=== PATIENT | male | born 1945 | race Caucasian/White ===

== ENCOUNTER 2019-11-13 07:29 | Outpatient (CLI) | payer MEDICARE, SELFPAY ==
--- NOTE | 2019-11-13 07:49 | ECHO_ITS ---
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 Summary 1. Left ventricular chamber dimension is normal. 2. Ventricular septum is sigmoid shaped. 3. Left ventricular systolic function is normal, estimated at 55-60%. 4. There is mildly increased left ventricular wall thickness. 5. The left ventricular diastolic function is abnormal. 6. E/e' 14 is mildly elevated. 7. Atrial fibrillation. 8. Left atrial chamber dimension is mildly enlarged. 9. There is severe aortic valve sclerosis. 10. There is severe aortic valve stenosis with a peak velocity of 325 cm/s, mean gradient of 14 mmHg, and aortic valve area of 0.6 cm2. 11. By planimetry, valve area is 0.9 cm2. 12. There is mild to moderate mitral valve regurgitation. 13. There is mild tricuspid valve regurgitation. 14. No pulmonary hypertension, estimated pulmonary arterial systolic pressure is 33 mmHg. 15. There is trace pulmonic regurgitation. Left Ventricle E/e' 14 is mildly elevated. Atrial fibrillation. Ventricular septum is sigmoid shaped. Left ventricular chamber dimension is normal. Left ventricular systolic function is normal, estimated at 55-60%. There is mildly increased left ventricular wall thickness. The left ventricular diastolic function is abnormal. Right Ventricle Right ventricular chamber dimension is normal. Right ventricular systolic function is normal. Left Atria Left atrial chamber dimension is mildly enlarged. Right Atria Right atrial chamber dimension is normal. Aortic Valve By planimetry, valve area is 0.9 cm2. The aortic valve is trileaflet. There is severe aortic valve sclerosis. There is severe aortic valve stenosis with a peak velocity of 325 cm/s, mean gradient of 14 mmHg, and aortic valve area of 0.6 cm2. There is no aortic valve regurgitation. Pulmonic Valve There is trace pulmonic regurgitation. Mitral Valve There is no mitral valve stenosis. There is mild to moderate mitral valve regurgitation. Tricuspid Valve There is mild tricuspid valve regurgitation. No pulmonary hypertension, estimated pulmonary arterial systolic pressure is 33 mmHg. Pericardium/Pleural There is no pericardial effusion. Inferior Vena Cava Normal inferior vena cava with >50% collapse upon inspiration consistent with normal right atrial pressure, 5 mmHg. Aorta The aortic root size at the sinus of Valsalva is normal. Left Ventricular Outflow Tract Name Value Normal LVOT 2D LVOT Diameter 1.8 cm LVOT Doppler
== END 2019-11-13 07:30 | disposition home or self-care (01) ==
PROVIDERS: PCP Family Medicine; Visit Provider Physician Assistant
DX: I08.0 Rheumatic disorders of both mitral and aortic valves (principal); I48.91 Unspecified atrial fibrillation
CPT/HCPCS: 93306

== ENCOUNTER 2019-12-09 05:04 | Day surgery (SDC) | payer MEDICARE, OTHER, SELFPAY ==
[2019-12-09] VITALS (11 sets, daily range): BP systolic 109–172; BP diastolic 75–114; PULSE 51–91; RESP 11–24; TEMP 36.6; O2SAT 100
--- NOTE | 2019-12-09 | ECG_ITS ---
Measurements Intervals [place] Rate: 50 P: 53 AL: 191 QRS: -39 QRSD: 105 T: -2 QT: 388 QTc: 354 Interpretive Statements SINUS BRADYCARDIA LEFT AXIS DEVIATION DELAYED PRECORDIAL R/S TRANSITION BORDERLINE T WAVE ABNORMALITY- INFERIOR LEADS BORDERLINE ECG Electronically Signed On 12-09-2019 11:33:16 CDT by Sampson Rosas D.O.
--- NOTE | 2019-12-09 07:00 | ECG_ITS ---
Measurements Intervals [place] Rate: 89 P: MD: 0 QRS: -46 QRSD: 110 T: 28 QT: 336 QTc: 409 Interpretive Statements ATRIAL FIBRILLATION LEFT AXIS DEVIATION INTRAVENTRICULAR CONDUCTION DELAY DELAYED PRECORDIAL R/S TRANSITION BASELINE ARTIFACT- ii, iii, avf ABNORMAL ECG Electronically Signed On 12-09-2019 7:32:18 CDT by Sampson Rosas D.O.
[2019-12-09 07:38] LABS: Hematocrit 47.9 % (42.0-52.0); Hemoglobin 16.4 g/dL (14.0-18.0); Mean Corpuscular HGB Conc 34.2 g/dl (32-36); Mean Corpuscular Hemoglobin 30.1 pg (26-34); Mean Corpuscular Volume 87.9 fl (80-100); Mean Platelet Volume 10.4 fl (7.4-10.4); Platelet Count Result 146 k/mm3 (150-375); Red Blood Count 5.45 M/mm3 (4.6-6.20); Red Cell Distribution Width 12.8 % (11.5-14.5); White Blood Count 7.1 K/mm3 (4.5-10.0)
[2019-12-09 07:48] LABS: Blood Urea Nitrogen 18 mg/dL (9-20); Calcium 8.8 mg/dL (8.4-10.2); Carbon Dioxide 29 mmol/L (22-30); Chloride 105 mmol/L (98-107); Estimated Glomerular Filt Rate 59; Glucose 117 mg/dL (75-110); Potassium 4.1 mmol/L (3.4-5.0); Sodium 136 mmol/L (137-145)
[2019-12-09 08:00] LABS: INR 1.5; Prothrombin Time 18.1 Seconds (11.1-14.7)
--- NOTE | 2019-12-09 08:42 | WPDMODSED ---
Moderate Sedation Note-Pt Data Patient Data Diagnosis: Aortic stenosis, atrial fibrillation Present Complaint: Aortic stenosis, atrial fibrillation Procedure to be performed/Plan: Multiplanar transesophageal echocardiography with color flow and pulse wave Doppler Agitated saline study Electrical cardioversion Moderate sedation Allergies Allergy/AdvReac Type Severity Reaction Status Date / Time quinapril Allergy Unknown ACEI cough Verified 10/24/19 09:17 Home Medications Medication Instructions Recorded Confirmed Type simvastatin 10 mg tablet 10 mg PO DAILY #90 tablet 09/10/19 12/06/19 Rx metoprolol succinate 50 mg 50 mg PO DAILY #90 tablet 12/05/19 12/06/19 Rx tablet,extended release 24 hr rivaroxaban [Xarelto] 20 mg PO DAILY 12/06/19 12/06/19 History famotidine 20 mg PO HS 12/09/19 12/09/19 History latanoprost 1 drp OPHTHALMIC (EYE) QPM 12/09/19 12/09/19 History Current Medications: Active Medications Sodium Chloride (Normal Saline Iv) 1,000 mls @ 30 mls/hr IV CONT .Q24H JARROD Sedation/Anesthesia: No previous sedation/anesthesia problems (including family history). [facility] Past Medical History Medical History Hearing problem Hepatitis C antibody test negative (02/05/19) Surgical History Surgical History History of colonoscopy (07/05/19) normal Family History Family History Mother Family history of malignant neoplasm of stomach Family history of throat cancer Father Family history of malignant neoplasm of urinary bladder Social History Social History Smoking status: Never smoker Alcohol intake: current Mod Sed Physical Exam Physical Exam Pre Procedural Exam: Normal: Appearance, Eyes, Ears, Nose, Neck, Throat, Airway, Lungs, Heart Size, Heart Rate, Neuro Exam, Abdomen, Extremities and Skin and Variation: Heart Rhythm (Irregularly irregular) Hours since solid foods: 12 Hours since liquid intake: 12 Internal Medicine - PN: Obj Da Vital Signs Vital Signs: Vital Signs - 24 hr 12/09/19 07:23 12/09/19 08:30 Temperature 36.6 C Pulse Rate 76 91 Respiratory Rate 14 15 Blood Pressure 152/97 H 152/96 H Pulse Oximetry 100 100 Meds/Results Medications: Active Medications Generic Name Dose Route Start Last Admin Trade Name Casi PRN Reason Stop Dose Admin Sodium Chloride 1,000 mls @ 30 mls/hr 12/09/19 06:00 Normal Saline Iv IV CONT .Q24H JARROD Labs CBC & Chem 7: 12/09/19 07:17 12/09/19 07:17 Labs: Laboratory Results - last 24 hr 12/09/19 12/09/19 12/09/19 07:17 07:17 07:17 WBC 7.1 RBC 5.45 Hgb 16.4 Hct 47.9 MCV 87.9 MCH 30.1 MCHC 34.2 RDW 12.8 Plt Count 146 L MPV 10.4 PT 18.1 H INR 1.5 Sodium 136 L Potassium 4.1 Chloride 105 Carbon Dioxide 29 BUN 18 Creatinine 1.20 Estim Creat Clear Calc Not Reportable Estimated GFR 59 Glucose 117 H Calcium 8.8 Magnesium 2.0 ASA Classification/Sedation ASA Classification/Sedation ASA Class: II Emergent: No Risks: Risks, benefits and alternatives explained and patient/family accepted plan for sedation. Patient re-evaluated immediately prior to sedation.
--- NOTE | 2019-12-09 09:54 | SUR.PHASEII ---
0926 DR WALLS IN SPEAKING W PATIENT AND FAMILY RE FINDINGSOF NING.
--- NOTE | 2019-12-09 10:03 | SUR.PHASEII ---
0905-pt into Phase II Recovery. No distress noted. Goyo. at bedside. Will continue to monitor.
--- NOTE | 2019-12-09 10:21 | WPDTECDV ---
NING with Cardioversion Date of procedure: 12/09/19 Procedure Type: Multiplanar transesophageal echocardiography with color flow and pulse wave Doppler Agitated saline study Electrical cardioversion Moderate sedation Diagnosis: Aortic stenosis, atrial fibrillation Indications: Aortic stenosis, atrial fibrillation Description of Procedure: After discussing the risks benefits alternatives of the procedure the patient agreeable via verbal and written informed consent. Risks discussed included esophageal rupture perforation, need for emergent surgery, bleeding him pain-free, infection, skin irritation or burn from the pads, shocking into a more problematic heart rhythm. After time-out was taken and after establishing continuous telemetry monitoring, pulse oxygenation and serial blood pressure assessments, procedure was initiated. Procedure start time 8:45 a.m. Procedure stop time 9:05 a.m. Patient was monitored and medications were administered by Beata Camara RN Complications: None Blood loss: None Sedation: Moderate sedation using a total of 3 mg of Versed and 75 mcg of fentanyl given in divided dosages. Viscous lidocaine 10 cc gargle and swallow was also used for topical anesthetic. Findings: Normal left ventricular size and function with ejection fraction estimated 60-65%. Normal right ventricular size and function. Normal right atrial size. Mild left atrial enlargement. There is [id number] mitral regurgitation. Left atrial appendage is normal without mass or thrombus with velocities of around 50 centimeters/second. No pericardial effusion. The aortic root is mildly sclerotic. It measures 3.6 cm. The tricuspid valve is normal with mild tricuspid regurgitation. Pulmonic valve is normal with mild pulmonic insufficiency. Atrial septum appears intact. Negative agitated saline study for shunting. Color-flow does not show clear evidence of [id number] shunting. The aortic valve is trileaflet and calcified. Averaged planimetered aortic valve area of 0.9 centimeters squared. Electrical cardioversion: 150 joules of biphasic synchronized energy was used to restore sinus rhythm from atrial fibrillation Conclusion: 1. Normal left ventricular size and function 2. Mild left atrial enlargement 3. Masz-fo-wenbaohn mitral regurgitation 4. Severe aortic stenosis with averaged planimetered aortic valve area of 0.9 centimeter squared with mild aortic insufficiency 5. Mild tricuspid regurgitation 6. Successful zoroastrianism of sinus rhythm using 150 joules of biphasic synchronized energy 7. Moderate sedation I will see him back in the office later on this week. At that point we will initiate workup and referral to the valve Clinic as he will need a left and right heart catheterization.
--- NOTE | 2019-12-09 11:03 | SUR.PHASEII ---
2393 DETAILED WRITTEN AND VERBAL DISCHARGE INSTRUCTIONS REVIEWED W PATIENT AND AT BEDSIDE.BOTH VERBALIZE UNDERSTANDING. IV DC'D. PT TAKEN OUT IN WHEELCHAIR.
== END 2019-12-09 10:28 | disposition home or self-care (01) ==
PROVIDERS: PCP Family Medicine; Visit Provider Internal Medicine Cardiovascular Disease
PROC: (CPT 93312; principal; 2019-12-09 08:30)
PROC: 5A2204Z Restoration of Cardiac Rhythm, Single (ICD-10-PCS; 2019-12-09 08:30)
DX: I35.0 Nonrheumatic aortic (valve) stenosis (principal); I48.91 Unspecified atrial fibrillation; I34.0 Nonrheumatic mitral (valve) insufficiency; I36.1 Nonrheumatic tricuspid (valve) insufficiency; I10 Essential (primary) hypertension; E78.00 Pure hypercholesterolemia, unspecified; G47.33 Obstructive sleep apnea (adult) (pediatric); Z79.01 Long term (current) use of anticoagulants
CPT/HCPCS: 36415; 80048; 83735; 85027; 85610; 92960; 93005; 93312; 93320; 93325; J2250; J3010; J7040

== ENCOUNTER 2020-10-09 07:31 | Outpatient (CLI) | payer MEDICARE, OTHER, SELFPAY ==
--- NOTE | ~2020-10-09 | US_ITS ---
EXAMINATION: US right upper quadrant DATE: 10/09/2020 08:08 INDICATION: Abnormal liver enzymes TECHNIQUE: Multiple grayscale and Doppler ultrasound images of the abdomen were obtained. COMPARISON: None available FINDINGS: Bowel gas obscures visualization of the pancreas. The visualized portions of the pancreas a re unremarkable. The liver is normal with normal echogenicity and echotexture. No surface nodularity. Normal hepatopetal flow in the main portal vein. There is a 5 mm polyp of the gallbladder. No gallbl adder wall thickening, pericholecystic fluid, or stones are identified. The normal common bile duct m easures 2 mm. There was no sonographic Welsh sign. IMPRESSION: 1. No sonographic correlate for the patient's symptoms. 2. 5 mm gallbladder polyp. Surgery is sometimes considered for patients greater than 50 years of age. Reviewed, dictated and finalized at location A. [employer] COUNSEL[employer]
== END 2020-10-09 07:32 | disposition home or self-care (01) ==
PROVIDERS: PCP Family Medicine; Visit Provider Family Medicine
DX: R74.8 Abnormal levels of other serum enzymes (principal); K82.4 Cholesterolosis of gallbladder
CPT/HCPCS: 76705

== ENCOUNTER → 2021-05-17 10:15 | Outpatient (CLI) | payer MEDICARE, SELFPAY ==
--- NOTE | ~2021-05-17 | US_ITS ---
EXAMINATION: US abdomen limited EXAM DATE: 05/17/2021 10:38 INDICATION: K82.4 - Cholesterolosis of gallbladder. TECHNIQUE: Multiple grayscale and Doppler images of the abdomen right upper quadrant were obtained (b y a technologist who performed the scan) and subsequently reviewed. Comparison is made to prior exami nation from 10/09/2020. FINDINGS: The pancreatic head and body are normal in appearance. The pancreatic tail is not visualized. The l iver has normal echogenicity and contour. There are no focal liver lesions identified. There is no evidence of intrahepatic biliary duct dilation. Portal venous flow was seen in the hepatopedal, nor mal direction and has normal Doppler waveform. No right-sided hydronephrosis. Common bile duct measures 4 mm, which is normal. The gallbladder wall is normal in thickness, with ex pected amount of distention. No sonographic evidence of pericholecystic fluid. There is 4 mm gallbl adder polyp unchanged and likely benign. Technologist performing exam reports patient did not demons trate sonographic Welsh's sign. Please note that this sign is less reliable in patients who have re ceived pain medication. IMPRESSION: 1. Small gallbladder polyp unchanged. Reviewed, dictated and finalized at location A.
== END ==
PROVIDERS: PCP Family Medicine; Visit Provider Surgery
DX: K82.4 Cholesterolosis of gallbladder (principal)
CPT/HCPCS: 76705

== ENCOUNTER 2022-04-05 09:41 | Outpatient (CLI) | payer MEDICARE, OTHER, SELFPAY ==
--- NOTE | ~2022-04-05 | US_ITS ---
EXAMINATION: US right upper quadrant DATE: 04/05/2022 10:06 INDICATION: Diarrhea, unspecified TECHNIQUE: Multiple grayscale and Doppler ultrasound images of the abdomen were obtained. COMPARISON: 05/17/2021, FINDINGS: Bowel gas obscures visualization of the pancreas The liver is normal with normal echogenici ty and echotexture. No surface nodularity. Normal hepatopetal flow in the main portal vein. There is a stable 4 mm polyp of the gallbladder. There is no gallbladder wall thickening or pericholecystic fl uid. The normal common bile duct measures 4 mm. There was no sonographic Welsh sign. IMPRESSION: 1. Benign gallbladder polyp, stable. No sonographic correlate for diarrhea. Reviewed, dictated and finalized at location A.
== END 2022-04-05 09:42 | disposition home or self-care (01) ==
PROVIDERS: PCP Family Medicine; Visit Provider Family Medicine
DX: R19.7 Diarrhea, unspecified (principal); R17 Unspecified jaundice
CPT/HCPCS: 76705

== ENCOUNTER 2022-06-09 00:58 | Day surgery (SDC) | payer MEDICARE, OTHER, SELFPAY ==
[2022-04-29 13:25] VITALS: BMI 26.7
--- NOTE | 2022-05-25 15:31 | PC.NURSE ---
Prior interview completed 04/29/22. Pt updated on new date/time of procedure.
--- NOTE | 2022-06-02 10:55 | PC.NURSE ---
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
--- NOTE | 2022-06-08 10:16 | WPDANESEPPF ---
Anes - Initial Pre Proc Eval Procedure: Operation Date: 06/09/22 07:30 Proposed Procedures p Esophagogastroduodenoscopy - Zuhair Guzman MD Date/Time: 06/08/22 10:16 Surgeon: Zuhair Guzman MD Pre Op Diagnosis: jaundice, diarrhea Patient Data Age: 76 Gender: M Height: 1.78 m Weight: 84.5 kg Allergies Allergy/AdvReac Type Severity Reaction Status Date / Time quinapril Allergy Unknown ACEI cough Verified 06/09/22 06:20 Home Medications Medication Instructions Recorded Confirmed Type rivaroxaban 20 mg tablet (Xarelto) 20 mg PO DAILY 12/06/19 06/09/22 History latanoprost 0.005 % eye drops 1 drp ophthalmic (eye) QPM 12/09/19 06/09/22 History amlodipine 2.5 mg tablet 2.5 mg PO DAILY 02/28/20 06/09/22 History atorvastatin 40 mg tablet 40 mg PO DAILY 06/29/20 06/09/22 History aspirin 81 mg tablet,delayed 81 mg PO DAILY 11/11/20 06/09/22 History release metoprolol succinate 50 mg 50 mg PO DAILY #90 tabs 11/04/21 06/09/22 Rx tablet,extended release 24 hr finasteride 5 mg tablet 5 mg PO DAILY 03/18/22 06/09/22 History melatonin 5 mg tablet 5 mg PO QHS #1 tablet 03/25/22 06/09/22 Rx Saccharomyces boulardii 50 mg 50 mg PO DAILY 04/29/22 06/09/22 History capsule guar gum 1 gram tablet 1 g PO DAILY 04/29/22 06/09/22 History famotidine 20 mg tablet (Pepcid AC) 20 mg PO BID #60 tabs 06/09/22 Rx Patient hx anesthesia problems: none Family hx anesthesia problems: none Results Review: All pre-operative results and documents have been reviewed as part of the pre-operative evaluation. [facility] Past Medical History Medical History (Updated 06/09/22 @ 07:48 by Zuhair Guzman MD) Essential (primary) hypertension Glaucoma Hearing problem Hepatitis C antibody test negative (02/05/19) Hyperlipidemia Obstructive sleep apnea Stage 3 chronic kidney disease Surgical History Surgical History (Updated 06/08/22 @ 10:17 by Andi Johnson DO) Aortic valve replaced (~2019) H/O heart bypass surgery History of aortic valve replacement with bioprosthetic valve History of colonoscopy (07/05/19) normal Family History Family History Mother Family history of malignant neoplasm of stomach Family history of throat cancer Father Family history of malignant neoplasm of urinary bladder Social History Social History Smoking status: Never smoker Alcohol intake: former Drinks per week: 10 Substance use: never Substance use type: does not use Living arrangements: with family Gender identity (if verbalized by the patient): Male Sexual Orientation (if Verbalized by the Patient): Straight or Heterosexual Spiritual care concerns: No Anes - Eval Final PreProcedure Day of Procedure 06/08/22 10:16 Patient weight: overweight Heart: regular rate and rhythm Lungs: clear to auscultation Airway: Mallampati scale class II Neurological: alert and oriented Last oral intake: >/= 8 hours ASA classification: III Emergent: no Anesthetic plan: proceed Anesthesia type and monitoring: general GIVS and standard monitoring Results Review: All pre-operative results and documents have been reviewed as part of the pre-operative evaluation. Informed Consent: The patient's anesthetic plan and its attendant risks and benefits were discussed with the patient/family/POA. Questions were solicited and answers provided to the satisfaction of the patient/family/POA.
[2022-06-09 06:23] VITALS: BP 144/86; PULSE 77; RESP 18; TEMP 36.7; O2SAT 100
[2022-06-09] MEDS: LACTATED RINGERS 1,000 ML 150 ML IV CONT (06:25)
[2022-06-09] MEDS: GENTAMICIN 80MG/SOD CHL 50 ML 80 MG/50 ML BAG 100 MG IVPB (06:32)
[2022-06-09] MEDS: AMPICILLIN 2 GM/NS 100 ML 2 GM/100 ML BAG IVPB (06:55)
--- NOTE | 2022-06-09 07:31 | SUR.PREOP ---
Dr Guzman made aware that pt's last does of [place] was 06/07/2022.
[2022-06-09] MEDS: SIMETHICONE ORAL SUSPENSION 20 MG/0.3 ML 30 ML BOTTLE 0.6 ML IRRIGATION (07:41)
--- NOTE | 2022-06-09 07:44 | PM.IMHP ---
H&P: HPI History of Present Illness Date/Time: 06/09/22 07:44 Chief Complaint: Dyspepsia Narrative: this is a 76-year-old white male patient I am asked to see for dyspepsia. Patient complains of nocturnal heartburn. Previously took Pepcid but now only takes Tums at night. States this seems to given most relief but he does take this on a regular basis. An EGD is requested. 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 Surgery is seen patient and observation advised. Hepatitis-C is negative. Other liver tests are negative. patient also has a history of bowel movements most consistent with irritable bowel syndrome. This appears much in route approved on taking fiber supplementation. Benefiber or fiber gummies on daily basis or advised and have corrected his diarrhea stools. Patient denies any bleeding or weight loss. Family history is noncontributory. Recent colonoscopy In 2019 unremarkable. Review of Systems Review of Systems: review of systems noncontributory. [facility] Past Medical History Medical History (Updated 06/09/22 @ 07:48 by Zuhair Guzman MD) Essential (primary) hypertension Glaucoma Hearing problem Hepatitis C antibody test negative (02/05/19) Hyperlipidemia Obstructive sleep apnea Stage 3 chronic kidney disease Surgical History Surgical History (Updated 06/08/22 @ 10:17 by Andi Johnson DO) Aortic valve replaced (~2019) H/O heart bypass surgery History of aortic valve replacement with bioprosthetic valve History of colonoscopy (07/05/19) normal Family History Family History Mother Family history of malignant neoplasm of stomach Family history of throat cancer Father Family history of malignant neoplasm of urinary bladder Social History Social History Smoking status: Never smoker Alcohol intake: former Drinks per week: 10 Substance use: never Substance use type: does not use Living arrangements: with family Gender identity (if verbalized by the patient): Male Sexual Orientation (if Verbalized by the Patient): Straight or Heterosexual Spiritual care concerns: No Meds Home Medications and Allergies Home Medications Medication Instructions Recorded Confirmed Type rivaroxaban 20 mg tablet (Xarelto) 20 mg PO DAILY 12/06/19 06/09/22 History latanoprost 0.005 % eye drops 1 drp ophthalmic (eye) QPM 12/09/19 06/09/22 History amlodipine 2.5 mg tablet 2.5 mg PO DAILY 02/28/20 06/09/22 History atorvastatin 40 mg tablet 40 mg PO DAILY 06/29/20 06/09/22 History aspirin 81 mg tablet,delayed 81 mg PO DAILY 11/11/20 06/09/22 History release metoprolol succinate 50 mg 50 mg PO DAILY #90 tabs 11/04/21 06/09/22 Rx tablet,extended release 24 hr finasteride 5 mg tablet 5 mg PO DAILY 03/18/22 06/09/22 History melatonin 5 mg tablet 5 mg PO QHS #1 tablet 03/25/22 06/09/22 Rx Saccharomyces boulardii 50 mg 50 mg PO DAILY 04/29/22 06/09/22 History capsule guar gum 1 gram tablet 1 g PO DAILY 04/29/22 06/09/22 History Allergies Allergy/AdvReac Type Severity Reaction Status Date / Time quinapril Allergy Unknown ACEI cough Verified 06/09/22 06:20 Vital Signs Vital Signs - 24 hr 06/09/22 06:23 Temperature 98.1 F Pulse Rate 77 Respiratory Rate 18 Blood Pressure 144/86 H Pulse Oximetry 100 Oxygen Delivery Room Air Exam Narrative: Physical exam reveals patient to be alert. Vital signs stable. HEENT exam is unremarkable. Patient is anicteric. Lungs are clear to auscultation and percussion. Heart is without murmur or extra sounds. Abdomen bowel sounds present soft nontender with no organomegaly. Assessment and Plan Assessment and plan (1) Dyspepsia:
[2022-06-09 07:47] VITALS: BP 110/66; PULSE 75; RESP 15; O2SAT 99
[2022-06-09 07:57] VITALS: BP 114/77; PULSE 75; RESP 20; O2SAT 100
[2022-06-09 08:07] VITALS: BP 118/81; PULSE 63; RESP 20; O2SAT 100
== END 2022-06-09 08:15 | disposition home or self-care (01) ==
PROVIDERS: PCP Family Medicine; Visit Provider Internal Medicine Gastroenterology
PROC: 0DJ08ZZ Inspection of Upper Intestinal Tract, Via Natural or Artificial Opening Endoscopic (ICD-10-PCS; CPT 43235; principal; 2022-06-09 07:30)
DX: R10.13 Epigastric pain (principal); E78.5 Hyperlipidemia, unspecified; G47.33 Obstructive sleep apnea (adult) (pediatric); I12.9 Hypertensive chronic kidney disease with stage 1 through stage 4 chronic kidney disease, or unspecified chronic kidney disease; N18.30 Chronic kidney disease, stage 3 unspecified; Z95.2 Presence of prosthetic heart valve; Z79.01 Long term (current) use of anticoagulants; Z79.82 Long term (current) use of aspirin; R17 Unspecified jaundice; K82.4 Cholesterolosis of gallbladder; K22.10 Ulcer of esophagus without bleeding
CPT/HCPCS: 43235; J0290; J1580; J2704; J7120

== ENCOUNTER 2022-06-28 11:50 | Outpatient (CLI) | payer MEDICARE, OTHER, SELFPAY ==
[2022-06-28 12:08] LABS: Basophils Absolute Auto 0.1 K/mm3 (0.0-0.1); Basophils Percent Auto 1.3 % (0.2-1.2); Eosinophils Absolute Auto 0.2 K/mm3 (0-0.3); Eosinophils Percent Auto 2.9 % (0-4.4); Hematocrit 46.3 % (42.0-52.0); Hemoglobin 15.4 g/dL (14.0-18.0); Immature Granulocyte Absolute 0.02 K/mm3 (0.00-0.031); Immature Granulocyte Percent A 0.3 % (0-0.5); Lymphocytes Absolute Auto 1.47 K/mm3 (0.9-3.2); Lymphocytes Percent Auto 23.4 % (18.3-44.2); Mean Corpuscular HGB Conc 33.3 g/dl (32-36); Mean Corpuscular Hemoglobin 30.4 pg (26-34); Mean Corpuscular Volume 91.3 fl (80-100); Mean Platelet Volume 9.9 fl (7.4-10.4); Monocytes Absolute Auto 0.6 K/mm3 (0.1-0.6); Monocytes Percent Auto 9.1 % (2.6-8.5); Platelet Count Result 141 k/mm3 (150-375); Red Blood Count 5.07 M/mm3 (4.6-6.20); Red Cell Distribution Width 13.3 % (11.5-14.5); White Blood Count 6.3 K/mm3 (4.5-10.0)
[2022-06-28 15:52] LABS: Iron 101 ug/dL (49-181)
[2022-06-28 15:54] LABS: Alanine Aminotransferase 25 U/L (6-50); Albumin Level 4.5 g/dL (3.5-5.1); Alkaline Phosphatase 76 U/L (38-126); Anion Gap 9 mmol/L (8-16); Aspartate Amino Transferase 30 U/L (17-59); Bilirubin,Total 1.2 mg/dL (0.2-1.3); Blood Urea Nitrogen 19 mg/dL (9-20); Calcium 9.4 mg/dL (8.4-10.2); Carbon Dioxide 26 mmol/L (22-30); Chloride 103 mmol/L (98-107); Estimated Glomerular Filt Rate 59; Glucose 111 mg/dL (65-110); Potassium 4.5 mmol/L (3.4-5.0); Sodium 138 mmol/L (137-145)
[2022-06-28 16:10] LABS: Percent Iron Saturation 29 % (20-50)
[2022-07-02 20:03] LABS: Platelet Antibody, Direct IgG POSITIVE (NEGATIVE)
== END 2022-06-28 11:51 | disposition home or self-care (01) ==
LOC: ANHLAB 11:52
PROVIDERS: PCP Family Medicine; Visit Provider Internal Medicine Hematology & Oncology
DX: D69.49 Other primary thrombocytopenia (principal)
CPT/HCPCS: 36415; 80053; 82607; 82728; 82746; 83540; 83550; 85025; 86023

== ENCOUNTER 2022-10-17 13:45 | Outpatient (CLI) | payer MEDICARE, OTHER, SELFPAY ==
[2022-10-17 14:29] LABS: Basophils Absolute Auto 0.1 K/mm3 (0.0-0.1); Basophils Percent Auto 0.8 % (0.2-1.2); Eosinophils Absolute Auto 0.1 K/mm3 (0-0.3); Eosinophils Percent Auto 1.9 % (0-4.4); Hematocrit 43.8 % (42.0-52.0); Hemoglobin 15.1 g/dL (14.0-18.0); Immature Granulocyte Absolute 0.02 K/mm3 (0.00-0.031); Immature Granulocyte Percent A 0.3 % (0-0.5); Immature Platelet Fraction Pct 4.2 % (0.9-11.2); Lymphocytes Absolute Auto 1.16 K/mm3 (0.9-3.2); Lymphocytes Percent Auto 18.3 % (18.3-44.2); Mean Corpuscular HGB Conc 34.5 g/dl (32-36); Mean Corpuscular Hemoglobin 30.4 pg (26-34); Mean Corpuscular Volume 88.3 fl (80-100); Mean Platelet Volume 10.9 fl (7.4-10.4); Monocytes Absolute Auto 0.5 K/mm3 (0.1-0.6); Monocytes Percent Auto 8.2 % (2.6-8.5); Neutrophils Absolute Auto 4.5 K/mm3 (1.3-6.7); Neutrophils Percent Auto 70.5 % (45.5-73.1); Platelet Count Result 131 k/mm3 (150-375); Red Blood Count 4.96 M/mm3 (4.6-6.20); Red Cell Distribution Width 12.7 % (11.5-14.5); White Blood Count 6.3 K/mm3 (4.5-10.0)
[2022-10-17 15:36] LABS: Iron 71 ug/dL (49-181)
[2022-10-17 15:41] LABS: Alanine Aminotransferase 24 U/L (6-50); Alkaline Phosphatase 66 U/L (38-126); Anion Gap 4 mmol/L (8-16); Aspartate Amino Transferase 33 U/L (17-59); Bilirubin,Total 1.1 mg/dL (0.2-1.3); Blood Urea Nitrogen 21 mg/dL (9-20); Calcium 9.1 mg/dL (8.4-10.2); Carbon Dioxide 30 mmol/L (22-30); Chloride 103 mmol/L (98-107); Estimated Glomerular Filt Rate 49; Glucose 120 mg/dL (65-110); Sodium 137 mmol/L (137-145)
[2022-10-17 15:52] LABS: Percent Iron Saturation 21 % (20-50)
[2022-10-17 16:42] LABS: Folic Acid 11.8 ng/mL (2.76->20)
[2022-10-24 10:09] LABS: Reference Lab Test Result Negative
== END 2022-10-17 13:46 | disposition home or self-care (01) ==
LOC: ANHLAB 13:47
PROVIDERS: PCP Family Medicine; Visit Provider Internal Medicine Hematology & Oncology
DX: D69.49 Other primary thrombocytopenia (principal)
CPT/HCPCS: 36415; 80053; 82607; 82728; 82746; 83540; 83550; 85025; 85055; 86023

== ENCOUNTER 2023-04-24 10:48 | Outpatient (CLI) | payer MEDICARE, SELFPAY ==
[2023-04-24 11:03] LABS: Basophils Percent Auto 0.5 % (0.2-1.2); Eosinophils Absolute Auto 0.2 K/mm3 (0-0.3); Eosinophils Percent Auto 2.3 % (0-4.4); Hematocrit 45.1 % (42.0-52.0); Hemoglobin 15.7 g/dL (14.0-18.0); Immature Granulocyte Absolute 0.03 K/mm3 (0.00-0.031); Immature Granulocyte Percent A 0.4 % (0-0.5); Lymphocytes Absolute Auto 1.81 K/mm3 (0.9-3.2); Lymphocytes Percent Auto 22.3 % (18.3-44.2); Mean Corpuscular HGB Conc 34.8 g/dl (32-36); Mean Corpuscular Hemoglobin 30.7 pg (26-34); Mean Corpuscular Volume 88.3 fl (80-100); Mean Platelet Volume 10.1 fl (7.4-10.4); Monocytes Absolute Auto 0.7 K/mm3 (0.1-0.6); Monocytes Percent Auto 9.1 % (2.6-8.5); Neutrophils Absolute Auto 5.3 K/mm3 (1.3-6.7); Neutrophils Percent Auto 65.4 % (45.5-73.1); Platelet Count Result 150 k/mm3 (150-375); Red Blood Count 5.11 M/mm3 (4.6-6.20); Red Cell Distribution Width 13.2 % (11.5-14.5); White Blood Count 8.1 K/mm3 (4.5-10.0)
[2023-04-24 12:14] LABS: Iron 86 ug/dL (49-181)
[2023-04-24 12:17] LABS: Anion Gap 9 mmol/L (8-16); Blood Urea Nitrogen 19 mg/dL (9-20); Calcium 9.1 mg/dL (8.4-10.2); Carbon Dioxide 25 mmol/L (22-30); Chloride 101 mmol/L (98-107); Estimated Glomerular Filt Rate 59; Glucose 116 mg/dL (65-110); Potassium 4.3 mmol/L (3.4-5.0); Sodium 135 mmol/L (137-145)
[2023-04-24 12:24] LABS: Percent Iron Saturation 25 % (20-50)
[2023-04-24 13:24] LABS: Folic Acid > 20.0 ng/mL (2.76->20)
== END 2023-04-24 10:49 | disposition home or self-care (01) ==
PROVIDERS: PCP Family Medicine; Visit Provider Internal Medicine Hematology & Oncology
DX: D69.59 Other secondary thrombocytopenia (principal); D64.9 Anemia, unspecified
CPT/HCPCS: 36415; 80048; 82607; 82728; 82746; 83540; 83550; 85025

== ENCOUNTER 2024-01-30 14:21 | Outpatient (CLI) | payer MEDICARE, SELFPAY ==
--- NOTE | ~2024-01-30 | XR_ITS ---
Lumbosacral Spine: AP, oblique, and lateral views Clinical History: Pain Findings: The normal lordotic curve is maintained. Moderate compression fracture at the superior plat e region of L2 noted. Intervertebral disc spaces are preserved. There is moderate facet arthropathy f rom L4 through S1. The sacroiliac joints are normally outlined. Impression: L2 compression fracture, as detailed above. Facet arthropathy at the lower lumbar spine, as noted above. Reviewed, dictated and finalized at location M. Impression: L2 compression fracture, as detailed above. Facet arthropathy at the lower lumbar spine, as noted above.
--- NOTE | ~2024-01-30 | XR_ITS ---
Thoracic spine: Clinical Indication: Back pain AP and lateral views were performed. No fracture is seen. There is normal alignment of the vertebrae. The intervertebral disc spaces appe ar normal. DISH noted at the mid to lower thoracic spine. Paravertebral soft tissues appear normal. Impression: DISH of the mid to lower thoracic spine. Reviewed, dictated and finalized at location . Impression: DISH of the mid to lower thoracic spine.
== END 2024-01-30 14:22 ==
LOC: GOSHIMG 14:22
PROVIDERS: PCP Family Medicine; Visit Provider Family Medicine
DX: M48.14 Ankylosing hyperostosis [Forestier], thoracic region (principal); M48.56XA Collapsed vertebra, not elsewhere classified, lumbar region, initial encounter for fracture; M47.896 Other spondylosis, lumbar region
CPT/HCPCS: 72072; 72110

== ENCOUNTER 2024-04-15 08:30 | Outpatient (CLI) | payer MEDICARE, SELFPAY ==
--- NOTE | ~2024-04-15 | XR_ITS ---
3 VIEWS LUMBAR SPINE Ordering provider: Aubrie Sims MD History: . S32.020A - Wedge compression fracture of second lumbar ve... . Comparison: January 30, 2024 FINDINGS: VERTEBRAL BODIES:Compression fracture of L2 which is unchanged from previous exam. Otherwise, No vis ible fracture or subluxation. DISK SPACES: Normal. SOFT TISSUES: Atherosclerotic changes of the aorta. Bilateral sacroiliacs. IMPRESSION: No acute osseous abnormality lumbar spine. Old compression fracture of L2. Reviewed, dictated and finalized at location A.
== END 2024-04-15 08:31 ==
PROVIDERS: PCP Family Medicine; Visit Provider Neurological Surgery
DX: S32.020A Wedge compression fracture of second lumbar vertebra, initial encounter for closed fracture (principal); X58.XXXA Exposure to other specified factors, initial encounter
CPT/HCPCS: 72100

== ENCOUNTER 2024-04-15 09:09 | Outpatient (CLI) | payer MEDICARE, SELFPAY ==
[2024-04-15 09:50] LABS: Basophils Absolute Auto 0.1 K/mm3 (0.0-0.1); Basophils Percent Auto 0.9 % (0.2-1.2); Eosinophils Absolute Auto 0.1 K/mm3 (0-0.3); Hematocrit 43.8 % (42.0-52.0); Hemoglobin 14.7 g/dL (14.0-18.0); Immature Granulocyte Absolute 0.01 K/mm3 (0.00-0.031); Immature Granulocyte Percent A 0.2 % (0-0.5); Immature Platelet Fraction Pct 3.6 % (0.9-11.2); Lymphocytes Absolute Auto 1.32 K/mm3 (0.9-3.2); Lymphocytes Percent Auto 24.6 % (18.3-44.2); Mean Corpuscular HGB Conc 33.6 g/dl (32-36); Mean Corpuscular Hemoglobin 29.7 pg (26-34); Mean Corpuscular Volume 88.5 fl (80-100); Mean Platelet Volume 10.9 fl (7.4-10.4); Monocytes Absolute Auto 0.6 K/mm3 (0.1-0.6); Monocytes Percent Auto 10.4 % (2.6-8.5); Neutrophils Absolute Auto 3.3 K/mm3 (1.3-6.7); Neutrophils Percent Auto 61.9 % (45.5-73.1); Platelet Count Result 121 k/mm3 (150-375); Red Blood Count 4.95 M/mm3 (4.6-6.20); Red Cell Distribution Width 13.2 % (11.5-14.5); White Blood Count 5.4 K/mm3 (4.5-10.0)
[2024-04-15 12:36] LABS: Alanine Aminotransferase 21 U/L (6-50); Albumin Level 4.2 g/dL (3.5-5.1); Alkaline Phosphatase 74 U/L (38-126); Anion Gap 7 mmol/L (4-12); Aspartate Amino Transferase 34 U/L (17-59); Blood Urea Nitrogen 19 mg/dL (9-20); Calcium 8.9 mg/dL (8.4-10.2); Carbon Dioxide 28 mmol/L (22-30); Chloride 101 mmol/L (98-107); Estimated Glomerular Filt Rate 59; Glucose 105 mg/dL (65-110); Potassium 4.2 mmol/L (3.4-5.0); Sodium 136 mmol/L (137-145)
== END 2024-04-15 09:10 | disposition home or self-care (01) ==
LOC: ANHLAB 09:09
PROVIDERS: PCP Family Medicine; Visit Provider Internal Medicine Hematology & Oncology
DX: D69.49 Other primary thrombocytopenia (principal)
CPT/HCPCS: 36415; 80053; 82607; 85025; 85055

== ENCOUNTER 2024-04-18 08:30 | Outpatient (RCR) | payer MEDICARE, SELFPAY ==
--- NOTE | 2024-03-14 10:56 | OPREHPOC ---
Outpatient Therapy Plan of Care This is a Multidisciplinary Plan of Care that may contain components documented by all disciplines (PT, OT, and ST.) PT Problem 1 PT Problem #1 Knowledge Deficit PT Goal 1 Goal [place] with HEP Target Visit 4 PT Problem 2 PT Problem #2 Impaired Range of Motion PT Goal 1 Goal Demonstrate 40 degrees [place] of hip abduction ROM Target Visit 6 PT Goal 2 Goal Demonstrate -20 degrees or better of Hamstring restriction for reduced posterior chain restriction Target Visit 6 PT Problem 3 PT Problem #3 Impaired Gait PT Goal 1 Goal Ambulate with even stride length bilaterally Target Visit 6 PT Problem 4 PT Problem #4 Impaired Functional Mobil PT Goal 1 Goal Demonstrate ability to perform 20# lift with no increased back pain and proper hip hinge mechanics Target Visit 6
--- NOTE | 2024-03-14 10:56 | PTOPEVAL1 ---
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 It is better than when it first happened but it still feels like a muscle achy pain. Feels that fall was isolate incident due to catching his feet. Currently getting some ache into right quad when standing. History of working out with security trainer for core stabilization. Occasionally losing some sleep at night but getting better. He has been wearing strapped back brace to help keep things neutral. Reported Pain Level Pain Score 0: Self Report Assessment PT Clinical Summary Patient presents with indications of healing at this time as pain has steadily reduced and function has improved since accident. Presents with some hip mobility deficits and difficulty with hip disassociation in motion from lumbar spine. Will benefit from skilled therapy to address hip mobility, core training, and lumbar decompression for nursing home functional improvement and body mechanics. Plan of Care Interventions Electrical Stimulation,Gait Training,Manual Therapy,Neuro Re-education,Therapeutic Activities, Therapeutic Exercise PT Services Indicated Yes Treatment Frequency and 1x/week for 6 visits Duration These treatments will address the objective and functional deficits as defined above. The patient will be advanced safely and appropriately in order for the patient to progress towards his/her prior level of function. Additional exercises will be introduced and as well as a comprehensive home exercise program upon discharge, if needed, ?to ensure carryover of functional gains achieved in the clinic. This treatment plan has been reviewed and agreement upon by the patient.
--- NOTE | 2024-04-18 09:20 | PTOPDC ---
Assessment and note entered by Jennifer Marquez, PT Discharge Report Assessment Status Discharge Diagnosis Wedge compression fracture of L2, Lumbar pain, Thoracic pain Onset 01/27/24 Subjective Information is doing good; is doing the exercises at home; need to get balance better, R leg little more off balance than L; feel like ready to be done with therapy; is doing everything he usually does; Reported Pain Level Pain Score Self Report Additional Pain Score Comments pain range in past few days 0-1/10; muscles in back ache, sore--not really anything; reinforced use of heat or ice when over do it; Assessment PT Clinical Summary Elver has received 6 PT sessions. Compared to the initial evaluation: increase strength of trunk and LE's; improved gait pattern continues to have tightness over both hamstrings; hip abduction ROM increased bilateral. Completed education for HEP and body mechanics; The goals were achieved, except hamstring length. Discharge PT services, he is to continue with his home exercises and increase activity as tolerated. Plan of Care PT Services Indicated No
== END 2024-04-18 09:54 | disposition home or self-care (01) ==
LOC: ANHPT 08:30
PROVIDERS: PCP Family Medicine; Visit Provider Family Medicine
DX: M54.50 Low back pain, unspecified (principal); M54.6 Pain in thoracic spine; S32.020D Wedge compression fracture of second lumbar vertebra, subsequent encounter for fracture with routine healing
CPT/HCPCS: 97014; 97110; 97116; 97140; 97161; 97530; G0283

== ENCOUNTER 2024-05-02 09:15 | Outpatient (CLI) | payer MEDICARE, SELFPAY ==
--- NOTE | ~2024-05-02 | XR_ITS ---
XR tibia fibula RT 2V Ordering provider: April Galvez History: . Rt leg hit with baseball x 1 week . Comparison: None. FINDINGS: BONES: The possibility of a fracture in the medial malleolus cannot be excluded. Clinical evaluation for tenderness in this area on follow-up is advised. Irregularity in the lateral malleolus is seen mo st likely due to old fracture. Calcaneal spur. Ossification of the insertion of the tendo Achilles JOINT SPACES: Narrowing laterally. SOFT TISSUES: Soft tissue swelling over the medial malleolus. IMPRESSION: The possibility of a fracture in the medial malleolus cannot be excluded. Clinical evaluation for ten derness and follow-up is advised. Old healed fracture in the lateral malleolus with joint space narrowing in the Reviewed, dictated and finalized at location A. IMPRESSION: The possibility of a fracture in the medial malleolus cannot be excluded. Clini geena evaluation for tenderness and follow-up is advised. Old healed fracture in the lateral malleolus with joint space narrowing in the
== END 2024-05-02 09:16 ==
PROVIDERS: PCP Family Medicine; Visit Provider Family Medicine
DX: M79.661 Pain in right lower leg (principal)
CPT/HCPCS: 73590

== ENCOUNTER 2025-04-21 13:16 | Outpatient (CLI) | payer MEDICARE, SELFPAY ==
--- OUTSIDE RECORDS SUMMARY | 2025-04-21 13:19 | XMS_ITS | Clinical Summary ---
Author Organization [facility] Zach Giraldo Address [address] [place] [address] Care Team Providers Care Bi Analyst Name Role Phone April Galvez DO Primary Care Provider [phone]- [phone] Allergies Active Allergy Reactions Criticality Noted Date Comments Kong Inhibitors Cough Low 03/20/2020 Medications amLODIPine (NORVASC) 2.5 mg tablet Take 1 Tablet by mouth daily. 2 Active aspirin (ECOTRIN EC) 81 mg Tablet, Delayed Release (E.C.) Take 81 mg by mouth daily. Active atorvastatin (LIPITOR) 40 mg tablet TAKE 1 TABLET BY MOUTH EVERY DAY AT NIGHT 2 Active finasteride (PROSCAR) 5 mg tablet Take 5 mg by mouth daily. 2 Active famotidine (PEPCID) 20 mg tablet Take 20 mg by mouth 2 times daily. 2 Active latanoprost (XALATAN) 0.005 % solution 1 Drop by Ophthalmic route daily at bedtime. 9 Active metoprolol succinate (TOPROL XL) 50 mg Extended Release 24 hour tablet Take 50 mg by mouth daily. 0 Active Xarelto 20 mg Tablet Take 20 mg by mouth daily. 2 Active sildenafiL (VIAGRA) 100 mg tablet TAKE 1 TABLET BY MOUTH ONCE DAILY NEEDED FOR ERECTILE DYSFUNCTION 2 Active cyanocobalamin (VITAMIN B-12) 100 mcg tablet Take 100 mcg by mouth daily. Active melatonin 5 mg Tablet Take 5 mg by mouth daily. 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 Encounters Date Type Department Care Team Description 04/09/2025 External Device Data ST[facility] ABSTRACTION Provider, Abstract 04/08/2025 External Device Data [facility] ABSTRACTION Provider, Abstract 03/11/2025 External Device Data [facility] ABSTRACTION Provider, Abstract 02/13/2025 External Device Data [facility] ABSTRACTION Provider, Abstract 02/13/2025 External Device Data [facility] ABSTRACTION Provider, Abstract 02/12/2025 External Device Data [facility] ABSTRACTION Provider, Abstract 02/11/2025 External Device Data [facility] ABSTRACTION Provider, Abstract from Last 3 Months Social History Tobacco Use Types Packs/Day Years Used Date Smoking Tobacco: Never Tobacco Cessation:Counseling Given: Not Answered Sex and Gender Information Value Date Recorded Sex Assigned at Not on file Legal Sex Male 11:29 AM CDT Gender Identity Not on file Sexual Orientation Not on file Last Filed Vital Signs Vital Sign Reading Time Taken Comments Blood Pressure 122/73 04/29/2024 9:52 AM CDT Pulse 75 04/29/2024 9:52 AM CDT Temperature 36.7 C (98 F) 04/29/2024 9:52 AM CDT Respiratory Rate 18 04/29/2024 9:52 AM CDT Oxygen Saturation 99% 04/29/2024 9:52 AM CDT Inhaled Oxygen Concentration - - Weight 84.4 kg (186 lb) 04/29/2024 9:52 AM CDT Height 177.8 cm (5' 10) 04/27/2023 11:11 AM CDT Body Mass Index 26.69 04/27/2023 11:11 AM CDT Plan of Treatment Upcoming Encounters Date Type Department Care Team (Late st Contact Info) Description 04/25/2025 11:00 AM CDT Office Visit [facility] Oncology and Hematology - [place] [address] [place] [address] Steven Chavarria MD [address] [place] [address] Health Maintenance Due Date Last Done Comments DTAP/TDAP/TD VACCINES (1 - Tdap) 1964 PNEUMOCOCCAL VACCINE 50+ YEARS (1 of 2 - PCV) 11/06/18 67 Traditional Medicare (ACO) Annual Wellness Visit 11/06 ZOSTER VACCINE (1 of 2) 1996 RSV VACCINE (60+ or ) (1 - 1-dose 75+ series) 2021 INFLUENZA VACCINE (#1) 2025 Insurance MEDICARE PART A AND B [facility] [id number] Care Teams Bi Analyst Relationship Specialty Start Date End Date April Galvez DO [address] [place] [id number] PCP - General Family Practice 04/29/24
--- OUTSIDE RECORDS SUMMARY | 2025-04-21 13:19 | XMS_ITS | Referral Summary ---
Author Organization [facility] [place] [address] Address [address] [place] [address] Care Team Providers Care Diagrammer And Seamer Name Role Phone April Galvez DO Primary Care Provider [phone]- [phone] Encounters Date Type Department Care Team Description 04/09/2025 8:00 AM CDT Office Visit [facility] Cardiology [address] [place] [address] Niraj Weaver MD Chronic atrial fibrillation (HCC) (Primary Dx); Coronary artery disease of [place] artery [place] heart with stable angina pectoris; Essential hypertension; S/P AVR; Chronic anticoagulation from Last 3 Months Allergies Active Allergy Reactions Criticality Noted Date Comments Kong Inhibitors Cough Low 03/20/2020 Medications latanoprost (XALATAN) 0.005 % ophthalmic solution Administer 1 drop into both eyes nightly 9 Active aspirin 81 mg enteric coated tablet Take 1 tablet (81 mg total) by mouth daily Active famotidine (PEPCID) 20 mg tablet Take 1 tablet (20 mg total) by mouth 2 (two) times a day 2 Active finasteride (PROSCAR) 5 mg tablet Take 1 tablet (5 mg total) by mouth daily 2 Active melatonin 5 mg tablet Take 1 tablet (5 mg total) by mouth daily Active inulin (FIBER GUMMIES ORAL) Take by mouth Ac tive cyanocobalamin, vitamin B-12, (VITAMIN B-12 ORAL) Take by mouth Active amLODIPine (NORVASC) 2.5 mg tablet Take 1 tablet (2.5 mg total) by mouth daily 90 tablet 3 4 Active atorvastatin (LIPITOR) 40 mg tablet Take 1 tablet (40 mg total) by mouth nightly 90 tablet 3 4 Active metoprolol XL (TOPROL-XL) 50 mg extended release tablet Take 1 tablet (50 mg total) by mouth daily 90 tablet 3 4 Active rivaroxaban (Xarelto) 20 mg tablet Take 1 tablet (20 mg total) by mouth daily 90 tablet 3 4 Active Active Problems Problem Noted Date Diagnosed Date Chronic atrial fibrillation 07/02/2020 Coronary artery disease of n ative artery of [place] heart with stable angina pectoris 04/24/2020 Overview (04/24/2020): Added automatically from request for surgery [id number] Nonrheumatic aortic valve stenosis 03/20/2020 Overview (03/20/2020): Added automatically from request for surgery [id number] Chronic anticoagulation 12/13/2019 Essential hypertension 11/18/2019 MEHDI (obstructive sleep apnea) 11/18/2019 Mitral valve insufficiency 11/18/2019 Aortic valve stenosis 11/18/2019 Encounter for other preprocedural examination S/P CABG (coronary artery bypass graft) S/P AVR ALEXANDRO (acute kidney injury) Thrombocytopenia Leukocytosis Social History Tobacco Use Types Packs/Day Years Used Date Smoking Tobacco: Never Cigarettes Smokeless Tobacco: Never Tobacco Cessation:Counseling Given: Not Answered Alcohol Use Standard Drinks/Week Comments Not Currently 14 (1 standard drink = 0.6 oz pure alcohol) 2 GLASSES DAILY - holding before surgery Sex and Gender Information Value Date Recorded Sex Assigned at Not on file Legal Sex Male 7:54 PM CDT Gender Identity Not on file Sexual Orientation Not on file Last Filed Vital Signs Vital Sign Reading Time Taken Comments Blood Pressure 122/84 04/09/2025 7:50 AM CDT Pulse 90 04/09/2025 7:50 AM CDT Temperature 36.8 C (98.2 F) 06/18/2020 12:20 PM CDT Respiratory Rate 18 04/09/2025 7:50 AM CDT Oxygen Saturation 99% 04/09/2025 7:50 AM CDT Inhaled Oxygen Concentration - - Weight 85.3 kg (188 lb) 04/09/2025 7:50 AM CDT Height 177.8 cm (5' 10) 04/09/2025 7:50 AM CDT Body Mass Index 26.98 04/09/2025 7:50 AM CDT Plan of Treatment Not on file Medical Devices Implanted Type Area Public Health Analyst Device Identifier Shelf Expiration Date Model / Serial / Lot [employer] [id number] Rhonda-Edwa rds Perimount Magna Ease Thermafix 25mm - [id number] - [id number] Implanted:Qty: 1 on 05/08/2020 by Antonietta Martins MD at [facility] Prosthetic Valve N/A: Heart [employer] 04/06/2023 [id number] / [id number] / Device Clsr 40mm Atriclip 45d Ntnl Poly Flex Shaft Plunger - [id number] Implanted:Qty: 1 on 05/08/2020 by Antonietta Martins MD at [facility] N/A: Heart Atricure 12/24/2022 [id number] / / [id number] Insurance MEDICARE [facility] [employer] System Address: [facility] [id number] [place] [address] MEDICARE [facility] MEDICARE MEDICARE [facility] [employer] Display System Address: [facility] [id number] [place] [address] Advance Directives For more information, please contact: [phone] Documents on File Type Date Recorded Patient Outsole Rounder Expl anation ADVANCE DIRECTIVE 05/08/2020 7:47 AM * Full Code (Latest Code Status on File) Date Activated Date Inactivated Comments 05/19/2020 7:32 PM * Full Code Date Activated Date Inactivated Comments 05/08/2020 1:46 PM 05/15/2020 8:43 PM * Full Code Date Activated Date Inactivated Comments 04/02/2020 4:55 PM 04/03/2020 3:16 PM Care Teams Diagrammer And Seamer Relationship Specialty Start Date End Date April Galvez DO PCP - General Family Medicine 11/18/19
--- OUTSIDE RECORDS SUMMARY | 2025-04-21 13:19 | XMS_ITS | Clinical Summary ---
Author Organization [facility] [place] [address] Address [address] [place] [address] Care Team Providers Care Technician Biological Health Name Role Phone April Galvez DO Primary Care Provider [phone]- [phone] Allergies Active Allergy Reactions Criticality Noted Date [...] artery disease of n ative artery of [place] heart with stable angina pectoris 04/24/2020 Overview (04/24/2020): Added automatically from request for surgery [id number] Nonrheumatic aortic valve stenosis 03/20/2020 Overview (03/20/2020): Added automatically from request for surgery [id number] Chronic anticoagulation 12/13/2019 Essential hypertension 11/18/2019 MEHDI (obstructive sleep apnea) 11/18/2019 Mitral valve insufficiency 11/18/2019 Aortic valve stenosis 11/18/2019 Encounter for other preprocedural examination S/P CABG (coronary artery bypass graft) S/P AVR ALEXANDRO (acute kidney injury) Thrombocytopenia Leukocytosis Encounters Date Type Department Care Team Description 04/09/2025 8:00 AM CDT Office Visit [facility] Cardiology [address] [place] [address] Niraj Weaver MD Chronic atrial fibrillation (HCC) (Primary Dx); Coronary artery disease of [place] artery of [place] heart with stable angina pectoris; Essential hypertension; S/P AVR; Chronic anticoagulation from Last 3 Months Surgical History Surgery Date Site/Laterality Comments CARDIAC CATHETERIZATION CATARACT EXTRACTION one eye; 1994 CORONARY ARTERY BYPASS GRAFT CARDIAC VALVE REPLACEMENT VASECTOMY 1991 Medical History Medical History Date Comments High cholesterol Atrial fibrillation (HCC) Coronary artery disease Aortic stenosis Sleep apnea oral appliance Hypertension GERD (gastroesophageal reflu x disease) Glaucoma Cataract one eye has lens; 2n d eye has mild cataract Heart disease 2019 Family History Medical History Relation Name Comments Cancer Father Reuben Duenas Depression Father Reuben Duenas Memory loss Father Reuben Duenas Cancer Mother Ale Duenas Relation Name Status Comments Father Reuben Duenas (Age 84) CANCER Mother Ale Duenas (Age 84) Sister Alive 4 SISTERS IN GO OD BROTHER Social History Tobacco Use Types Packs/Day Years [...] on file Sexual Orientation Not on file Obstetrics History Last Filed Vital Signs Vital Sign Reading [...] 04/09/2025 7:50 AM CDT Plan of Treatment Health Maintenance Due Date Last Done Comments Depression Screening 1945 Hepatitis C Screening 1945 DTaP/Tdap/Td Vaccine (1 - Tdap) 1957 Hepatitis B Screening 1964 Pneumococcal vaccine 65+ (1 of 2 - PCV) 1965 Well Visit 65+ 2011 Fall Risk Assessment 05/15/2021 05/15/2020 Influenza Vaccine (#1) 2025 06/20/2019, 2017 Zoster Vaccine Completed 04/29/2019, 12/10/2018 Medical Devices Implanted Type Area Label Tacker Device Identifier Shelf Expiration Date Model / Serial / Lot [employer] [id number] Rhonda-Edwa rds Perimount Magna Ease Thermafix 25mm - [id number] - [id number] Implanted:Qty: 1 on 05/08/2020 by Antonietta Martins MD at [facility] Prosthetic Valve N/A: Heart [employer] 04/06/2023 [id number] / [id number] / Device Clsr 40mm Atriclip 45d Ntnl Poly Flex Shaft Plunger - [id number] Implanted:Qty: 1 on 05/08/2020 by Antonietta Martins MD at [facility] N/A: Heart Atricure 12/24/2022 [id number] / / [id number] Insurance MEDICARE [facility] MEDICARE [facility] MEDICARE [facility] Advance Directives For more information, please contact: [phone] Documents on File Type Date Recorded Patient Walnut Dehydrator Operator Expl anation ADVANCE DIRECTIVE 05/08/2020 7:47 AM * Full Code (Latest Code Status on File) Date Activated Date Inactivated Comments 05/19/2020 7:32 PM * Full Code Date Activated Date Inactivated Comments 05/08/2020 1:46 PM 05/15/2020 8:43 PM * Full Code Date Activated Date Inactivated Comments 04/02/2020 4:55 PM 04/03/2020 3:16 PM Care Teams Technician Biological Health Relationship Specialty Start Date End Date April Galvez DO PCP - General Family Medicine 11/18/19
[2025-04-21 13:32] LABS: Hematocrit 40.5 % (42.0-52.0); Hemoglobin 13.6 g/dL (14.0-18.0); Immature Granulocyte Percent A 0.2 % (0-0.5); Immature Platelet Fraction Pct 3.8 % (0.9-11.2); Lymphocytes Absolute Auto 1.31 K/mm3 (0.9-3.2); Mean Corpuscular HGB Conc 33.6 g/dl (32-36); Mean Corpuscular Hemoglobin 30.2 pg (26-34); Mean Corpuscular Volume 89.8 fl (80-100); Nucleated Red Blood Cells Absolute Auto 0.000 K/mm3 (0.0-0.012); Nucleated Red Blood Cells Perc 0.0 % (0.0-0.2); Platelet Count Result 133 k/mm3 (150-375); Red Blood Count 4.51 M/mm3 (4.6-6.20); White Blood Count 6.2 K/mm3 (4.5-10.0)
[2025-04-21 16:35] LABS: Alanine Aminotransferase 23 U/L (6-50); Albumin Level 4.2 g/dL (3.5-5.1); Alkaline Phosphatase 70 U/L (38-126); Anion Gap 7 mmol/L (4-12); Aspartate Amino Transferase 55 U/L (17-59); Bilirubin,Total 1.0 mg/dL (0.2-1.3); Blood Urea Nitrogen 17 mg/dL (9-20); Calcium 9.2 mg/dL (8.4-10.2); Carbon Dioxide 24 mmol/L (22-30); Chloride 102 mmol/L (98-107); Estimated Glomerular Filt Rate > 60; Glucose 121 mg/dL (65-110); Potassium 4.2 mmol/L (3.4-5.0); Sodium 133 mmol/L (137-145); Total Protein 7.1 g/dL (6.3-8.2)
[2025-04-21 17:28] LABS: Vitamin B12 930.0 pg/mL (239-931)
== END 2025-04-21 13:17 | disposition home or self-care (01) ==
LOC: ANHLAB 13:17
PROVIDERS: PCP Family Medicine; Visit Provider Internal Medicine Hematology & Oncology
DX: D69.49 Other primary thrombocytopenia (principal)
CPT/HCPCS: 36415; 80053; 82607; 85025; 85055